=== PATIENT | male | born 1960 ===

== ENCOUNTER 2017-08-16 10:56 | Outpatient (CLI) | payer BC ==
--- NOTE | 2017-08-16 11:13 | XRay Report ---
XRAY LEFT HIP 2 VIEWS: 08/16/17 10:56:00 CLINICAL: Left hip pain. FINDINGS: Status post left total hip replacement with normal appearance of the prosthesis. No evidence of loosening. Mild osteoarthritis of the right hip with narrowing of the joint space and mild superior acetabular eburnation. The pelvic bones are intact. Normal SI joints. No fracture or dislocation. Normal soft tissues. IMPRESSION: Status post left total hip are placement. Mild osteoarthritis of the right hip.
== END 2017-08-16 10:57 | disposition home or self-care (01) ==
LOC: SPVIMAG 10:56
PROVIDERS: ATTEND Orthopaedic Surgery Sports Medicine
DX: M25.552 Pain in left hip (principal); M16.11 Unilateral primary osteoarthritis, right hip; Z96.642 Presence of left artificial hip joint